=== PATIENT | male | born 1965 | race Caucasian/White ===

== ENCOUNTER → 2018-03-06 12:03 | Outpatient (CLI) | payer OTHER, SELFPAY ==
[2018-03-06 13:39] LABS: AST(SGOT) 21 U/L (15-37); Alanine Aminotransfer ALT/SGPT 48 U/L (16-61); Albumin, Serum 3.9 g/dL (3.2-5.0); Alkaline Phosphatase 113 U/L (45-117); Anion Gap 10 (5-15); BUN 15 mg/dL (7-18); BUN/Creat Ratio 17.7 RATIO (10-20); Calcium,Total 8.9 mg/dL (8.5-10.1); Chloride 101 mmol/L (98-107); Creatinine, Serum 0.85 mg/dL (0.70-1.30); EST Glomerular Filtration Rate 100 mL/min (>60); Est Glom Filt Rate - Afr Amer 121 mL/min (>60); Globulin 4.1 g/dL (2.2-4.2); Glucose 212 mg/dL (74-106); Potassium 3.7 mmol/L (3.5-5.1); Sodium Level 138 mmol/L (136-145); Thyroid Stim Hormone (TSH) 1.86 uIU/mL (0.358-3.74)
[2018-03-11 15:08] LABS: Testosterone, % Free 4.79 % (1.50-4.20); Testosterone, Free 9.44 ng/dL (5.00-21.00)
[2018-03-12 11:58] LABS: C-Peptide 5.3 ng/mL (1.1-4.4); Testosterone, Total 197 ng/dL (264-916)
== END ==
PROVIDERS: Family Provider Family Medicine; PCP Family Medicine; Visit Provider Family Medicine
DX: E11.65 Type 2 diabetes mellitus with hyperglycemia (principal); R53.83 Other fatigue; I10 Essential (primary) hypertension; E34.9 Endocrine disorder, unspecified
CPT/HCPCS: 36415; 80053; 84402; 84403; 84443; 84681

== ENCOUNTER 2018-05-07 13:20 | Emergency (ER) | payer OTHER, SELFPAY ==
[2018-05-07 13:20] VITALS: BP 174/91; PULSE 115; RESP 22; TEMP 35.7; O2SAT 94; BMI 40.4
[2018-05-07] MEDS: 0.9% Normal Saline 1,000 ML 1000 ML IV (14:20)
[2018-05-07 14:26] LABS: Bedside Glucose 215 mg/dL (70-110)
[2018-05-07 14:27] LABS: Absolute Lymphocyte Count 2.55 X10^3/ul (0.83-4.51); Absolute Neutrophil Count 5.2 X10^3/uL (2.0-7.7); Basophil# 0.04 X10^3/uL; Basophil% 0.5 % (0-1); Eosinophil# 0.41 X10^3/uL; Eosinophils% 4.6 % (0-5); Hematocrit 45.1 % (40-54); Lymphocyte # 2.55 X10^3/ul (4.0); Lymphocyte % 28.8 % (19-41); Mean Corp Hgb Conc 35.5 g/gl (32-36); Mean Corpuscular Hgb 31.6 pg (27.0-32.0); Mean Corpuscular Volume 89.1 fL (80-94); Mean Platelet Vol. 8.9 fl (6.2-12.0); Monocyte# 0.69 X10^3/uL; Monocyte% 7.8 % (0-10); Neutrophil # 5.17 X10^3/uL (2.7-7.7); Neutrophil % 58.3 % (47-70); POSITIVE COUNT NO; POSITIVE DIFFERENTIAL NO; POSITIVE MORPHOLOGY NO; Platelet Count 275 K/mm3 (150-450); RBC Distribution Width CV 12.6 % (11.6-14.6); RBC Distribution Width SD 40.1 fl (35.1-43.9); Red Blood Count 5.06 M/mm3 (4.6-6.2); White Blood Count 8.9 K/mm3 (4.4-11.0)
[2018-05-07 14:38] LABS: Anion Gap 8 (5-15); BUN 11 mg/dL (7-18); BUN/Creat Ratio 12.5 RATIO (10-20); Calcium,Total 8.8 mg/dL (8.5-10.1); Chloride 107 mmol/L (98-107); Creatinine, Serum 0.88 mg/dL (0.70-1.30); EST Glomerular Filtration Rate 95 mL/min (>60); Est Glom Filt Rate - Afr Amer 115 mL/min (>60); Estimated Creatinine Clearance 102.21 ml/min; Glucose 220 mg/dL (74-106); Potassium 4.5 mmol/L (3.5-5.1); Sodium Level 139 mmol/L (136-145)
--- NOTE | 2018-05-07 15:14 | ED.VISSUMM ---
- ER Visit Summary Date of Service: 05/07/18 Chief Complaint: Sinus pain History of Present Illness: The patient is a [address] Coulter. He reports that he has had sinus pressure for approximately 2 weeks. Complains of an aching pain is 710 hours and 510 currently. Is worsened by walking and relieved by rest. He reports that he is already been on a Z-Neri without relief. He has been on doxycycline for the past week without relief. He is also taking Mucinex D. Reports that his blood sugar was elevated this morning and was 400. Reports that during this period time he has had a hard time getting it below 200. Patient denies any fever or chills. He has a sore throat this 2 out of 10 severity. He has a cough is productive yellow sputum without blood. Physical Examination: Vitals: 96.3, 174/91, 115, 22, 94% on room air which is not hypoxic. General: Well-nourished and well-developed. Head: Normocephalic atraumatic. HEENT: Pharyngeal erythema. No exudate. Neck: Supple, no lymphadenopathy. No JVD. Nontender. Cardiovascular: Regular rate and rhythm. No murmurs. Respiratory: No respiratory distress. Clear to auscultation bilaterally. Abdominal: Soft, nontender, nondistended, normal bowel sounds. No guarding, rebound, or peritoneal signs. Back: Nontender. Extremities: Nontender, no edema. Skin: Normal color, no rash. Neurologic: Alert and oriented ?3. Cranial nerves II through XII are intact. Normal strength and sensation. Psych: Normal affect. Test Results: CBC was normal. Chem-7 is more for glucose 220. Chest x-ray is normal. CT sinuses show partial opacification of the left maxillary and left sphenoid sinuses. Opacification of the ethmoid sinuses bilaterally left greater than right. Emergency Department Course and Treatment: Patient was given a liter bolus of normal saline. His heart rate is decreased into the 90s. He is given Tylenol p.o. and Levaquin p.o. Treatment Plan: Had a prolonged discussion the patient that his sinusitis may be viral in origin. He reports he is just miserable and would like to try a second line antibiotic. He will be discharged with Levaquin instructed follow-up Dr. Coulter in a week if not improving. Return to the emergency department for any worsening symptoms. Disposition: To home in improved and stable condition. Impression: 1. Sinusitis. This note was generated with [employer] dictation software. It may contain incorrect words, spelling, and punctuation that were not noted in review of the chart prior to signing ED Disposition - Plan for ED Patient: Disposition: Home or Assisted Living Chief Complaint: General Illness Instructions: ED Sinusitis Abx Tx Prescriptions: levoFLOXacin tablet [Levaquin] 500 mg PO DAILY #10 tablet Referrals: Annalise Coulter DO [Primary Care Provider] - 1 Week if not improving
[2018-05-07] MEDS: levoFLOXacin 500 MG Tablet PO (15:27)
[2018-05-07 15:29] VITALS: BP 156/91; PULSE 89; RESP 16; O2SAT 98
== END 2018-05-07 15:30 | disposition home or self-care (01) ==
PROVIDERS: Emergency Provider Emergency Medicine; Family Provider Family Medicine; PCP Family Medicine
DX: J32.9 Chronic sinusitis, unspecified (principal); J02.9 Acute pharyngitis, unspecified; E11.9 Type 2 diabetes mellitus without complications; I10 Essential (primary) hypertension
CPT/HCPCS: 70486; 71046; 80048; 82962; 85025; 99285; J7030; A4216

== ENCOUNTER 2018-06-19 10:00 | Outpatient (RCR) | payer OTHER, SELFPAY | END 2018-06-19 23:59 | LOC: DC 10:00 | PROVIDERS: Family Provider Family Medicine; PCP Family Medicine; Visit Provider Family Medicine | DX: E11.65 Type 2 diabetes mellitus with hyperglycemia (principal); Z71.3 Dietary counseling and surveillance | CPT/HCPCS: G0108 ==

== ENCOUNTER 2018-11-14 13:03 | Emergency (ER) | payer BC, SELFPAY ==
[2018-11-14 13:04] VITALS: BP 173/83; PULSE 87; RESP 17; TEMP 36.2; O2SAT 97; BMI 41.8
--- NOTE | 2018-11-14 13:07 | RAD_ITS ---
STUDY: X-RAY - LEFT HAND, ATTENTION SECOND FINGER REASON FOR EXAM: Nail gun injury. TECHNIQUE: 3 view(s) of the finger were obtained. COMPARISON: None. FINDINGS: Normal metacarpal head. Normal metacarpophalangeal joint. Normal proximal phalanx. Normal middle phalanx. Normal distal phalanx. Normal proximal interphalangeal joint. Normal distal interphalangeal joint. There is a nail palmar and ulnar to the middle phalanx/proximal interphalangeal joint on the oblique view. RAD/Finger(s) Min 2 Views IMPRESSION: Nail at the palmar ulnar aspect of the middle phalanx/proximal interphalangeal joint. No demonstrated fracture. Electronically Signed: Holden Hwang MD at 14:22 EST Tel , Service support ,
--- NOTE | 2018-11-14 14:24 | ED.DCSUM_ITS ---
- ER Visit Summary Date of Service: 11/14/18 Chief Complaint: Foreign body left index finger History of Present Illness: The patient is a 53 M who presents with a foreign bite to his left index finger that occurred today. Patient states he was using a nail gun when it bounced off the wood and went into his finger. Patient denies any paresthesias or weakness. Patient states the pain is sharp and is worse with any movement. Patient states he attempted to remove the foreign body without success. States his last tetanus was 3 years ago. Physical Examination: Vital signs are stable. Patient is afebrile. Patient is in no acute distress. Muscular skeletal exam reveals a foreign body in the middle phalanx of the left index finger. There is no bleeding noted. Sensation was intact to light touch in all digits. Capillary refill is less than 2 seconds in all digits. Patient has good strength with flexion and extension of the MP, PIP, and DIP joints. Radial pulses are equal bilaterally. The remaining physical exam is within normal limits. Test Results: X-rays of the left index finger were obtained. There is a metallic foreign body noted. There is no acute fracture. Emergency Department Course and Treatment: The left index finger was anesthetized with 1% lidocaine via digital block. The foreign body was removed. Patient tolerated procedure well. Patient was given a dose of clindamycin and [place] here. Patient was given a prescription for clindamycin and [place]. Patient was instructed to follow-up with his primary care physician in 3-5 days. Patient was instructed on signs and symptoms which should prompt return to the emergency department. Patient understood and was agreeable with the plan. All questions were answered. Disposition: Discharge home Impression: Foreign body left index finger This note was generated with [employer] dictation software. It may contain incorrect words, spelling, and punctuation that were not noted in review of the chart prior to signing ED Disposition - Plan for ED Patient: Disposition: Home or Assisted Living Diagnosis: Foreign body of left index finger Instructions: ED Foreign Body Soft Tissue Removed Prescriptions: Hydrocodone Bitart/Apap 5-325 [[place] 5MG-325MG] 1 tab PO Q6H PRN PRN 3 Days #10 tab PRN Reason: Pain Clindamycin HCl [Cleocin] 300 mg PO Q6H #40 cap Referrals: Annalise Coulter DO [STAFF PHYSICIAN] -
[2018-11-14 14:55] LABS: Bedside Glucose 325 mg/dL (70-110)
[2018-11-14] MEDS: Clindamycin HCl 150 MG Capsule 300 MG PO (14:55)
[2018-11-14 15:00] VITALS: BP 170/97; PULSE 86; RESP 17; O2SAT 97
[2018-11-14] MEDS: HYDROcodone Bitartrate/Apap 5/325 Tablet PO (15:43)
== END 2018-11-14 15:56 | disposition home or self-care (01) ==
PROVIDERS: Emergency Provider Emergency Medicine
DX: S60.451A Superficial foreign body of left index finger, initial encounter (principal); W45.0XXA Nail entering through skin, initial encounter; Y93.9 Activity, unspecified; Y92.89 Other specified places as the place of occurrence of the external cause; Y99.9 Unspecified external cause status; E11.9 Type 2 diabetes mellitus without complications; I10 Essential (primary) hypertension
CPT/HCPCS: 73140; 82962; 99283